=== PATIENT | female | born 1995 | race African-American/Black ===

== ENCOUNTER 2017-07-25 07:31 | Emergency (ER) | payer MEDICAID ==
[~2017-07-25] VITALS: Ht 180.3 cm; Wt 95.0 kg
[2017-07-25] MEDS ORDERED: LEVETIRACETAM 1,000 MG in SODIUM CHLORIDE 0.9% 100 ML IV ONE (08:45)
[2017-07-25] MEDS ORDERED: LEVETIRACETAM 1000MG PREMIX 100 ML IV ONE (09:15)
[2017-07-25 09:27] LABS: BASOPHILS % 0.7 % (0.0-2.0); EOSINOPHILS % 0.3 % (0.0-5.0); HEMATOCRIT. 33.4 % (36.0-48.0); HEMOGLOBIN. 10.5 g/dL (12.0-16.0); LYMPHOCYTES % 11.9 % (20.0-50.0); MEAN CORPUSCULAR HEMOGLOBIN 24.2 pg (28.0-32.0); MEAN CORPUSCULAR VOLUME 76.7 fL (81.0-99.0); MEAN PLATELET VOLUME 7.9 fl (7.4-10.4); MONOCYTES % 7.8 % (2.0-8.0); NEUTROPHILS % 79.3 % (40.0-76.0); PLATELET 375 x1000/uL (130-400); RED BLOOD CELL COUNT 4.36 mill/uL (4.2-5.4); RED CELL DISTRIBUTION WIDTH 19.5 % (11.6-14.6)
[2017-07-25 09:29] LABS: CHLORIDE 106 mEq/L (98-107)
[2017-07-25 09:30] LABS: GLUCOSE URINE NEGATIVE (NEGATIVE); KETONES URINE 1+ (NEGATIVE); LEUKOCYTE ESTERASE URINE 2+ (NEGATIVE); NITRITE URINE POSITIVE (NEGATIVE); OCCULT BLOOD URINE 3+ (NEGATIVE); PROTEIN URINE 1+ (NEGATIVE); SPECIFIC GRAVITY URINE 1.031 (1.005-1.030)
[2017-07-25 09:32] LABS: CLARITY URINE CLOUDY (CLEAR); COLOR URINE YELLOW (YELLOW)
[2017-07-25 09:34] LABS: AMMONIA < 25 uMol/L (<32)
[2017-07-25 09:45] LABS: CARBON DIOXIDE 25 mEq/L (21-32); CREATINE KINASE 209 IU/L (26-192); ETHANOL BLOOD < 10 mg/dL
[2017-07-25 10:04] LABS: *BARBITURATES SCREEN URINE NEGATIVE (NEGATIVE); *BENZODIAZEPINES SCREEN URINE NEGATIVE (NEGATIVE); *COCAINE SCREEN URINE NEGATIVE (NEGATIVE); METHADONE URINE SCREEN NEGATIVE (NEGATIVE); OPIATES URINE SCREEN NEGATIVE (NEGATIVE); PHENCYCLIDINE URINE SCREEN NEGATIVE (NEGATIVE)
[2017-07-25 10:19] LABS: *AMPHETAMINES SCREEN URINE PRESUMTIVE POSITIVE (NEGATIVE); CANNABINOID URINE SCREEN PRESUMTIVE POSITIVE (NEGATIVE)
[2017-07-25 17:03] VITALS: BP 112/60
== END 2017-07-25 18:32 | disposition home or self-care (01) ==
LOC: EDBD 07:51 → ER 07:51
DX: R56.9 Unspecified convulsions (principal); Z59.0 Homelessness
CPT/HCPCS: 36415; 70450; 71010; 80053; 80305; 81001; 81025; 82140; 82550; 83605; 84443; 85025; 96365; 99285; G0482; J1953; J7050